=== PATIENT | male | born 1970 | race Caucasian/White ===

== ENCOUNTER 2019-12-19 06:41 | Emergency (ER) | payer BC ==
[~2019-12-19] VITALS: Ht 172.7 cm; Wt 97.3 kg
[2019-12-19] MEDS ORDERED: IV NORMAL SALINE 1,000ML 1,000 ML IV SCH (07:34)
--- NOTE | 2019-12-19 07:41 | PHYS DOC ---
Past History Past Medical History: Diabetes Past Surgical History: Tonsillectomy, Other Additional Past Surgical Histo: LEFT KNEE Alcohol Use: None Adult General Chief Complaint Chief Complaint: ABDOMINAL PAIN HPI HPI Patient is a 49-year-old male who presents with abdominal pain. Onset was 1 month ago " after I colored my hair". This has acutely worsened in past 1 week. Patient has been prescribed PPIs for suspected GERD which has improved pain. P.o. intake makes worse. Pain is vague mainly in RUQ region but is felt in entirety of abdomen without any radiation. Timing of symptoms has waxed and waned but has been more constant in past 48 hours. Associated symptoms include subjective fevers, chills, constipation with last bowel movement "3-4 days ago". Patient denies any COVID-19 contact, headache, chest pain, shortness of breath, syncope, changes in bladder function or output. Patient reports seeing local emergency room within past x1 week and had laboratory analysis performed that was grossly unremarkable, no imaging performed. He was subsequently sent home with instructions to take PPI and follow-up with PCP, he did not follow-up in outpatient setting. He does not have a primary care physician, no prior/known medical diagnoses, no prior abdominal surgeries, admits to recreational alcohol use without any other illicit drug use with last drink greater than 7 days ago, no family cardiac history. Review of Systems Review of Systems Fourteen body systems of review of systems have been reviewed. See HPI for pertinent positives and negative responses, other weber all other systems are negative, non-pertinent or non-contributory Current Medications Current Medications Current Medications Medications (Trade) Dose Ordered Sig/Durga Start Time Stop Time Status Last Admin Dose Admin Multi-Ingredient Mouthwash/Gargle (Gi Cocktail) 20 ml 1X ONCE 12/19/19 07:45 12/19/19 07:46 UNV Sodium Chloride 1,000 ml @ 1,000 mls/hr Q1H 12/19/19 07:34 12/19/19 08:33 UNV Allergies Allergies Allergies Coded Allergies Type Severity Reaction Last Updated Verified No Known Drug Allergies 12/19/19 No Physical Exam Physical Exam Constitutional: Well developed, well nourished, moderate distress, ambulatory but appears to be in acute pain HENT: Normocephalic, atraumatic, bilateral external ears normal, oropharynx moist, no oral exudates, nose normal. Eyes: PERRLA, EOMI, conjunctiva normal, no discharge. Neck: Normal range of motion, no tenderness, supple, no stridor. Cardiovascular: Heart rate tachycardic, sinus rhythm, no murmurs rubs or gallops Lungs & Thorax: Bilateral breath sounds clear to auscultation, mild respiratory distress due to pain Abdomen: Bowel sounds normal, tense abdomen, diffuse tenderness with positive Garrido sign, guarding present, no rebound, no masses, no pulsatile masses Skin: Warm, dry, no erythema, no rash. Back: No tenderness, no CVA tenderness. Extremities: No tenderness, no cyanosis, no clubbing, ROM intact, no edema. Neurologic: Alert and oriented X 3, grossly normal motor & sensory function, no focal deficits noted. Psychologic: Affect normal, judgement normal, anxious mood Current Patient Data Vital Signs Vital Signs Date Time Temp Pulse Resp B/P (MAP) Pulse Ox O2 Delivery O2 Flow Rate FiO2 12/19/19 07:20 97.5 166 20 135/111 (119) 97 Lab Results Laboratory Tests Test 12/19/19 07:30 12/19/19 07:33 White Blood Count 13.7 x10^3/uL (4.0-11.0) Red Blood Count 4.84 x10^6/uL (4.30-5.70) Hemoglobin 14.3 g/dL (13.0-17.5) Hematocrit 43.4 % (39.0-53.0) Mean Corpuscular Volume 90 fL (79-100) Mean Corpuscular Hemoglobin 30 pg (25-35) Mean Corpuscular Hemoglobin Concent 33 g/dL (31-37) Red Cell Distribution Width 12.6 % (11.5-14.5) Platelet Count 300 x10^3/uL (140-400) Urine Collection Type Unknown Urine Color Helen Urine Clarity Hazy Urine pH 5.5 Urine Specific Crenshaw >=1.030 Urine Protein >100 mg/dl (NEG-TRACE) Urine Glucose (UA) >=1000 mg/dL (NEG) Urine Ketones (Stick) >=160 mg/dL (NEG) Urine Blood Trace (NEG) Urine Nitrite Pos (NEG) Urine Bilirubin Large (NEG) Urine Urobilinogen Dipstick >=8.0 mg/dL (0.2 mg/dL) Urine Leukocyte Esterase Neg (NEG) Urine RBC 3-5 /HPF (0-2) Urine WBC 1-4 /HPF (0-4) Urine Squamous Epithelial Cells Occ /LPF Urine Bacteria Mod /HPF (0-FEW) Urine Hyaline Casts Few /HPF Urine Granular Casts Few /HPF Urine Mucus Marked /LPF Sodium Level 131 mmol/L (136-145) Potassium Level 3.8 mmol/L (3.5-5.1) Chloride Level 94 mmol/L (98-107) Carbon Dioxide Level 22 mmol/L (21-32) Anion Gap 15 (6-14) Blood Urea Nitrogen 13 mg/dL (8-26) Creatinine 1.0 mg/dL (0.7-1.3) Estimated GFR (Cockcroft-Gault) 79.4 BUN/Creatinine Ratio 13 (6-20) Glucose Level 250 mg/dL (70-99) Lactic Acid Level 1.4 mmol/L (0.4-2.0) Calcium Level 10.3 mg/dL (8.5-10.1) Total Bilirubin 3.2 mg/dL (0.2-1.0) Aspartate Amino Transf (AST/SGOT) 425 U/L (15-37) Alanine Aminotransferase (ALT/SGPT) 229 U/L (16-63) Alkaline Phosphatase 444 U/L (46-116) Creatine Kinase 44 U/L (39-308) Troponin I Quantitative < 0.017 ng/mL (0-0.055) Total Protein 8.8 g/dL (6.4-8.2) Albumin 3.7 g/dL (3.4-5.0) Albumin/Globulin Ratio 0.7 (1.0-1.7) Lipase 62 U/L (73-393) Urine Opiates Screen Neg (NEG) Urine Methadone Screen Neg (NEG) Urine Barbiturates Neg (NEG) Urine Phencyclidine Screen Neg (NEG) Urine Amphetamine/Methamphetamine Neg (NEG) Urine Benzodiazepines Screen Neg (NEG) Urine Cocaine Screen Neg (NEG) Urine Cannabinoids Screen Neg (NEG) Urine Ethyl Alcohol Neg (NEG) Glucose (Fingerstick) 251 mg/dL (70-99) EKG EKG EKG ordered and interpreted by myself at 0743 hrs. as sinus tachycardia at 138 bpm, unremarkable intervals, no axis deviation, no acute ischemic findings, no STEMI Radiology/Procedures Radiology/Procedures PROCEDURE: CHEST AP ONLY EXAM: CHEST 1 VIEW History: Epigastric pain COMPARISON: None available. TECHNIQUE: Single portable radiograph of the chest FINDINGS: The cardiac silhouette is unremarkable. Mild bibasilar lung atelectasis . The costophrenic sulci are clear and well demarcated. IMPRESSION: Mild bibasilar lung atelectasis. Electronically signed by: Daniel Graham MD (12/19/2019 8:49 AM) [id number] PROCEDURE: KUB PROCEDURE: KUB STUDY DATE: 12/19/2019 CLINICAL INDICATION / HISTORY: Reason: EPIGASTRIC PAIN / Spl. Instructions: / History: . TECHNIQUE: Single AP image of the abdomen was obtained. COMPARISON: None FINDINGS: The lung bases are not included. A nonobstructive bowel gas pattern is present. No organomegaly or pathologic calcifications are identified. No acute osseous abnormality. IMPRESSION: No radiographically apparent acute abdominal process. Electronically signed by: Xin Pruitt MD (12/19/2019 9:06 AM) [id number] PROCEDURE: CT ABD PELV W/ IV CONTRST ONLY Examination: CT of the abdomen pelvis with IV contrast HISTORY: History of epigastric pain COMPARISON: None available Technique: Axial CT image abdomen pelvis with IV contrast. Coronal and sagittal reformats are performed Exposure: One or more of the following individualized dose reduction techniques were utilized for this examination: 1. Automated exposure control 2. Adjustment of the mA and/or kV according to patient size 3. Use of iterative reconstruction technique Findings: A small calcified granuloma identified in the right middle lobe of the lung. Minimal linear left lung base atelectasis identified. No evidence of free air identified in the abdomen. The liver, spleen, adrenals grossly appears unremarkable. Mild enlarged sanjiv hepatic lymph nodes identified with the largest measuring 2.4 cm. The gallbladder is mildly distended. There is thickened appearance of the gallbladder wall with surrounding mild to moderate inflammatory fat stranding. The stomach is mildly distended with visualized pancreas grossly appears unremarkable. The small bowel is nondilated. Feces and gas noted in the colon. The appendix is normal. The urinary bladder is mildly distended. The bilateral kidneys enhance symmetrically. 7 mm cystic structure identified in the left kidney. Retroaortic left renal vein. Mild degenerative changes lower lumbar spine. IMPRESSION: 1. Thickened appearance of the gallbladder wall with surrounding inflammatory fat stranding suspicious for acute cholecystitis. Correlate with ultrasound right upper quadrant. 2. Mild enlarged lymph nodes identified in the sanjiv hepatis, probably reactive lymphadenopathy.. Electronically signed by: Daniel Graham MD (12/19/2019 8:44 AM) [id number] PROCEDURE: ABDOMEN LTD Right upper quadrant abdominal ultrasound History: Reason: RUQ PAIN / Spl. Instructions: / History: Comparison: CT abdomen and pelvis with contrast, earlier same day.. Technique: Transabdominal ultrasound images are obtained. Findings: Pancreas and IVC are not well visualized due to overlying bowel gas. Liver is normal in echogenicity. Right hepatic lobe measures 23.1 cm. Portal flow is hepatopedal. Gallbladder is partially filled with sludge. There is pericholecystic fluid. Sonographic Garrido sign is positive. There is gallbladder wall thickening measuring up to 5 mm. Common bile duct caliber is normal measuring 2 mm in diameter. The right kidney measures 11.9 cm in length. There is no hydronephrosis. IMPRESSION: Acute cholecystitis. There is gallbladder wall thickening, pericholecystic fluid, positive sonographic Garrido's sign, and gallbladder sludge. Electronically signed by: Antonio Aguirre MD (12/19/2019 10:29 AM) [id number] Heart Score HEART Score for Chest Pain: HEART Score for Chest Pain Response (Comments) Value History Slighlty/Non-Suspicious 0 ECG Normal 0 Age >45 - < 65 1 Risk Factors 1 or 2 Risk Factors 1 Troponin < Normal Limit 0 Total 2 Risk Factors: Risk Factors: DM, Current or recent (<one month) smoker, HTN, HLP, family history of CAD, obesity. Risk Scores: Risk Factors: DM, Current or recent (<one month) smoker, HTN, HLP, family history of CAD, obesity. Course & Med Decision Making Course & Med Decision Making Pertinent Labs and Imaging studies reviewed. (See chart for details) Discussed most likely diagnosis of acute cholecystitis with concomitant UTI 2 g IV Rocephin administered Dr Mcgregor, general surgeon at [facility] called and case discussed, he was agreeable for transport for surgical fixation Dr. Pantoja, hospitalist at [facility] called and case discussed, he agreed to admission under his care for continued medical management I updated patient on proposed plan of care, he was amenable. N.p.o. status at this time. All questions and concerns addressed. Patient stabilized prior to ER transport to [facility] for higher acuity of care Dragon Disclaimer Dragon Disclaimer This electronic medical record was generated, in whole or in part, using a voice recognition dictation system. Departure Departure: Impression: Primary Impression: Acute cholecystitis Additional Impression: UTI (urinary tract infection) Disposition: 02 DC/TRF OTHER SHORT TERM HOS ([facility]) Admitting Physician: Joao Pantoja Referrals: JOSE MILLER (PCP) Problem Qualifiers SARAH SOLITARIO DO Dec 19, 2019 07:41
[2019-12-19] MEDS ORDERED: LIDO:MAALOX 1:1 20 ML SINGLE DOSE. PO ONE (07:45)
[2019-12-19] MEDS ORDERED: IOHEXOL 300 MG/ML 75 ML VIAL. IV ONE (07:45)
[2019-12-19 07:59] LABS: BARBITURATES NEG (NEG); BENZODIAZEPINES NEG (NEG); CANNABINOIDS NEG (NEG); COCAINE NEG (NEG); HEMATOCRIT 43.4 % (39.0-53.0); HEMOGLOBIN 14.3 g/dL (13.0-17.5); MEAN CORPUSCULAR HEMOGLOBIN 30 pg (25-35); MEAN CORPUSCULAR HGB CONC 33 g/dL (31-37); MEAN CORPUSCULAR VOLUME 90 fL (79-100); METHADONE NEG (NEG); OPIATES NEG (NEG); PHENCYCLIDINE NEG (NEG); PLATELET COUNT 300 x10^3/uL (140-400); RED BLOOD COUNT 4.84 x10^6/uL (4.30-5.70); RED CELL DISTRIBUTION WIDTH 12.6 % (11.5-14.5); WHITE BLOOD COUNT 13.7 x10^3/uL (4.0-11.0)
[2019-12-19 08:00] LABS: AMPHETAMINE/METHAMPHETAMINE NEG (NEG)
[2019-12-19] MEDS ORDERED: CONTRAST GIVEN. MC PRN (08:00)
[2019-12-19 08:08] LABS: BILIRUBIN,URINE LARGE (NEG); CLARITY,URINE HAZY; COLOR,URINE AMBER; GLUCOSE,URINE >=1000 mg/dL (NEG); NITRITE,URINE POS (NEG); UROBILINOGEN,URINE >=8.0 mg/dL (0.2 mg/dL)
[2019-12-19 08:09] LABS: BACTERIA,URINE MOD /HPF (0-FEW); GRANULAR CASTS,URINE FEW /HPF; HYALINE CASTS, URINE FEW /HPF; SQUAMOUS EPITHELIAL CELL,UR OCC /LPF
[2019-12-19 08:12] LABS: CALCIUM 10.3 mg/dL (8.5-10.1); GFR 79.4; POTASSIUM 3.8 mmol/L (3.5-5.1)
[2019-12-19 08:19] LABS: ALBUMIN 3.7 g/dL (3.4-5.0); ALBUMIN/GLOBULIN RATIO 0.7 (1.0-1.7); TOTAL BILIRUBIN 3.2 mg/dL (0.2-1.0); TOTAL PROTEIN 8.8 g/dL (6.4-8.2)
[2019-12-19] MEDS ORDERED: MORPHINE SULFATE 4 MG/ML DISP.SYRIN. IV ONE (08:45)
--- NOTE | 2019-12-19 08:47 | RAD ---
Examination: CT of the abdomen pelvis with IV contrast HISTORY: History of epigastric pain COMPARISON: None available Technique: Axial CT image abdomen pelvis with IV contrast. Coronal and sagittal reformats are performed Exposure: One or more of the following individualized dose reduction techniques were utilized for this examination: 1. Automated exposure control 2. Adjustment of the mA and/or kV according to patient size 3. Use of iterative reconstruction technique Findings: A small calcified granuloma identified in the right middle lobe of the lung. Minimal linear left lung base atelectasis identified. No evidence of free air identified in the abdomen. The liver, spleen, adrenals grossly appears unremarkable. Mild enlarged sanjiv hepatic lymph nodes identified with the largest measuring 2.4 cm. The gallbladder is mildly distended. There is thickened appearance of the gallbladder wall with surrounding mild to moderate inflammatory fat stranding. The stomach is mildly distended with visualized pancreas grossly appears unremarkable. The small bowel is nondilated. Feces and gas noted in the colon. The appendix is normal. The urinary bladder is mildly distended. The bilateral kidneys enhance symmetrically. 7 mm cystic structure identified in the left kidney. Retroaortic left renal vein. Mild degenerative changes lower lumbar spine. IMPRESSION: 1. Thickened appearance of the gallbladder wall with surrounding inflammatory fat stranding suspicious for acute cholecystitis. Correlate with ultrasound right upper quadrant. 2. Mild enlarged lymph nodes identified in the sanjiv hepatis, probably reactive lymphadenopathy.. Electronically signed by: Daniel Graham MD (12/19/2019 8:44 AM) [id number]
--- NOTE | 2019-12-19 08:52 | RAD ---
EXAM: CHEST 1 VIEW History: Epigastric pain COMPARISON: None available. TECHNIQUE: Single portable radiograph of the chest FINDINGS: The cardiac silhouette is unremarkable. Mild bibasilar lung atelectasis . The costophrenic sulci are clear and well demarcated. IMPRESSION: Mild bibasilar lung atelectasis. Electronically signed by: Daniel Graham MD (12/19/2019 8:49 AM) [id number]
--- NOTE | 2019-12-19 09:09 | RAD ---
PROCEDURE: KUB STUDY DATE: 12/19/2019 CLINICAL INDICATION / HISTORY: Reason: EPIGASTRIC PAIN / Spl. Instructions: / History: . TECHNIQUE: Single AP image of the abdomen was obtained. COMPARISON: None FINDINGS: The lung bases are not included. A nonobstructive bowel gas pattern is present. No organomegaly or pathologic calcifications are identified. No acute osseous abnormality. IMPRESSION: No radiographically apparent acute abdominal process. Electronically signed by: Xin Pruitt MD (12/19/2019 9:06 AM) [id number]
[2019-12-19] MEDS ORDERED: IV NORMAL SALINE 1,000ML 1,000 ML IV ONE (09:15)
[2019-12-19 10:23] LABS: % BANDS 18 % (0-9); % LYMPHS 11 % (24-48); % MONOS 7 % (0-10); % SEGS 64 % (35-66)
[2019-12-19 10:24] LABS: PLT ESTIMATE ADEQUATE (ADEQUATE); TOXIC GRANULATION PRESENT; TOXIC VACUOLATION PRESENT
--- NOTE | 2019-12-19 10:32 | RAD ---
Right upper quadrant abdominal ultrasound History: Reason: RUQ PAIN / Spl. Instructions: / History: Comparison: CT abdomen and pelvis with contrast, earlier same day.. Technique: Transabdominal ultrasound images are obtained. Findings: Pancreas and IVC are not well visualized due to overlying bowel gas. Liver is normal in echogenicity. Right hepatic lobe measures 23.1 cm. Portal flow is hepatopedal. Gallbladder is partially filled with sludge. There is pericholecystic fluid. Sonographic Garrido sign is positive. There is gallbladder wall thickening measuring up to 5 mm. Common bile duct caliber is normal measuring 2 mm in diameter. The right kidney measures 11.9 cm in length. There is no hydronephrosis. IMPRESSION: Acute cholecystitis. There is gallbladder wall thickening, pericholecystic fluid, positive sonographic Garrido's sign, and gallbladder sludge. Electronically signed by: Antonio Aguirre MD (12/19/2019 10:29 AM) [id number]
[2019-12-19 12:03] VITALS: BP 114/73
--- NOTE | 2019-12-20 06:36 | EKG ---
[address] [address] Test Date: 2019-12-19 Test Time: 07:24:14 Pat Name: IZABELA OAKES Department: Room: Gender: M Crts: : 1970 Requested By: SARAH SOLITARIO Order Number: [id number] Reading MD: Measurements Intervals [place] Rate: 138 P: -44 [place]: 96 QRS: 20 QRSD: 92 T: 8 QT: 280 QTc: 431 Interpretive Statements SINUS TACHYCARDIA ST & T ABNORMALITY, CONSIDER INFERIOR ISCHEMIA OR LEFT VENTRICULAR STRAIN ABNORMAL ECG RI6.02 No previous ECG available for comparison
== END 2019-12-19 12:08 | disposition short-term general hospital (02) ==
LOC: ER 06:41
DX: K81.0 Acute cholecystitis (principal); N39.0 Urinary tract infection, site not specified; E11.9 Type 2 diabetes mellitus without complications; Z20.828 Contact with and (suspected) exposure to other viral communicable diseases
CPT/HCPCS: 36415; 71045; 74018; 74177; 76705; 80053; 80307; 81001; 82550; 82947; 83605; 83690; 84484; 85007; 85025; 87040; 87086; 87426; 93005; 96361; 96365; 96375; 99285; C9803; J0696; J2270; J7030; Q9967; U0003